=== PATIENT | male | born 2000 | race Caucasian/White ===

== ENCOUNTER 2018-09-15 00:35 | Emergency (ER) | payer OTHER ==
[2018-09-15] MEDS ORDERED: EPINEPHrine 1 MG/ML INJ IM ONE (00:52)
[2018-09-15] MEDS ORDERED: FAMOTIDINE 20 MG/NACL 50 ML IV ONE (00:52)
[2018-09-15] MEDS ORDERED: methylPREDNISolone SOD SUCC 125 MG/2 ML VIAL IVP ONE (00:52)
[2018-09-15] MEDS ORDERED: RANITIDINE 50 MG/2 ML VIAL ONE (00:52)
[2018-09-15] MEDS ORDERED: NS 1,000 ML IV ONE (00:52)
--- NOTE | 2018-09-15 00:57 | EDPHY ---
H & P Stated Complaint: ALLERGIC REACTION/HIVES Time Seen by Provider: 09/15/18 00:51 HPI/ROS: HPI The patient presents with concern for allergic reaction. He had dinner tonight at about 8:30 p.m. And ate a cashew pesto dish. Other people he was eating dinner with ate a pine nut pesto. The patient has a strong allergy to pine nuts and he did not consume any of this that he is aware of. Shortly after eating, he developed abdominal discomfort. He went home and felt itchy. He noticed that he had a rash on his skin and apply triamcinolone cream to the areas he also noticed that he was congested and had a runny nose. He had an EpiPen at home, however it had so did not use it. REVIEW OF SYSTEMS 10 systems were reviewed and negative with the exception of the elements mentioned in the history of present illness. PMHx: History of allergic reactions Soc Hx: Here with a friend PHYSICAL General Appearance: Alert, no distress Eyes: Pupils equal and round no pallor or injection ENT, Mouth: Mucous membranes moist, posterior pharynx is erythematous without edema Respiratory: There are no retractions, lungs are clear to auscultation Cardiovascular: Regular rate and rhythm Gastrointestinal: Abdomen is soft and non-tender, no masses, bowel sounds normal Neurological: A&O, moves all extremities Skin: Warm and dry, diffuse urticarial rash throughout entire trunk and face as well as upper extremities Musculoskeletal: Neck is supple non tender Extremities: symmetrical, full range of motion Psychiatric: Patient is oriented X 3, there is no agitation Source: Patient Exam Limitations: No limitations - Personal History Current Tetanus Diphtheria and Acellular Pertussis (TDAP): Yes - Medical/Surgical History Hx Asthma: Yes Hx Chronic Respiratory Disease: No Hx Diabetes: No Hx Cardiac Disease: No Hx Renal Disease: No Hx Cirrhosis: No Hx Alcoholism: No Hx HIV/AIDS: No Hx Splenectomy or Spleen Trauma: No Other PMH: EYE SX - Social History Smoking Status: Never smoked Constitutional: Initial Vital Signs Temperature (C) 36.6 C 09/15/18 00:40 Heart Rate 98 09/15/18 00:40 Respiratory Rate 18 09/15/18 00:40 Blood Pressure 151/93 H 09/15/18 00:40 O2 Sat (%) 97 09/15/18 00:40 O2 Delivery Mode Room Air Allergies/Adverse Reactions: peanut Allergy (Verified 09/15/18 00:38) pine nut Allergy (Verified 09/15/18 00:38) soy Allergy (Verified 09/15/18 00:38) Home Medications: Medication Instructions Recorded Albuterol 09/15/18 Dupixent 09/15/18 EPINEPHrine [Epipen 0.3 MG] 0.3 mg IM ONCE #2 syr 09/15/18 Epipen Kit 09/15/18 Medical Decision Making Differential Diagnosis: This is a 18-year-old male who was exposed to pine nuts at about 8:30 p.m. Tonight and has a pine nut allergy. He has developed abdominal pain, runny nose , extensive urticaria since. Plan to treat as anaphylaxis with epinephrine, Benadryl, Pepcid, Solu-Medrol. Will observe him here. The patient was observed for 2 hr after receiving epinephrine. He had return of hives on his abdomen, these were minimal in comparison to his hives upon presentation. Because of this he was observed for another 45 min and had no progression of these hives. He had no other symptoms. He felt comfortable going home. I will discharge him with prescription for new epi pens as his have . I have advised him to continue Benadryl around the clock until he improves. Critical Care Time: CRITICAL CARE Critical care time spent by me, Dr. Vee, exclusively with this patient was 20 minutes, exclusive of PA time and exclusive of procedures. The organ system at risk was cardiac and I gave epinephrine IM to prevent worsening of the patients condition. - Data Points Medications Given: Discontinued Medications Diphenhydramine HCl (Benadryl Injection) 25 mg IVP EDNOW ONE Stop: 09/15/18 00:53 Last Admin: 09/15/18 01:05 Dose: 25 mg Epinephrine HCl (Epinephrine) 0.3 mg IM EDNOW ONE Stop: 09/15/18 00:53 Last Admin: 09/15/18 01:05 Dose: 0.3 mg Sodium Chloride (Ns) 1,000 mls @ 0 mls/hr IV ONCE ONE; Wide Open PRN Reason: Protocol Stop: 09/15/18 00:53 Last Admin: 09/15/18 01:09 Dose: 1,000 mls Famotidine/Sodium Chloride (Pepcid 20 Mg (Premix)) 50 mls @ 200 mls/hr IV EDNOW ONE Stop: 09/15/18 01:06 Last Admin: 09/15/18 01:05 Dose: 50 mls Methylprednisolone Sodium Succinate (Solu-Medrol) 125 mg IVP EDNOW ONE Stop: 09/15/18 00:53 Last Admin: 09/15/18 01:06 Dose: 125 mg Departure - Departure Disposition: Home, Routine, Self-Care Clinical Impression: Acute anaphylaxis Qualifiers: Encounter type: initial encounter Qualified Code(s): T78.2XXA - Anaphylactic shock, unspecified, initial encounter Condition: Good Instructions: Food Allergy (ED), Anaphylaxis (ED) Additional Instructions: I recommend you take Benadryl 25 mg every 6 hr until the hives improved. If your symptoms become worse in any way, you should give yourself the EpiPen. Referrals: [facility],. [Clinic] - As per Instructions Prescriptions: EPINEPHrine [Epipen 0.3 MG] 0.3 mg IM ONCE #2 syr
[2018-09-15 04:06] VITALS: BP 116/80
== END 2018-09-15 04:05 | disposition home or self-care (01) ==
DX: L50.9 Urticaria, unspecified (principal); T78.05XA Anaphylactic reaction due to tree nuts and seeds, initial encounter; E86.9 Volume depletion, unspecified
CPT/HCPCS: 96374; J0171; J1200; J2780; J2930